=== PATIENT | male | born 1980 | race Caucasian/White ===

== ENCOUNTER 2017-11-02 15:07 | Emergency (ER) | payer BC, OTHER ==
[2017-11-02 15:11] VITALS: RESP 18
[2017-11-02] MEDS ORDERED: HYDROcodone/APAP 5-325MG 1 EACH TAB PO STA (15:25)
[2017-11-02] MEDS ORDERED: ONDANSETRON 4 MG TAB PO STA (15:25)
[2017-11-02] MEDS ORDERED: cefTRIAXone 1,000 MG VIAL (IM USE) IM STA (15:26)
[2017-11-02] MEDS ORDERED: DIPH,PERTUS(ACELL)TETVAC-LF 0.5 ML VIAL IM ONE (15:27)
[2017-11-02] MEDS ORDERED: MORPHINE SULFATE 4MG/4ML SYRG IVP STA ×2 (15:27→15:33)
[2017-11-02] MEDS ORDERED: cefTRIAXone IN SWFI 2,000 MG/20 ML SYRINGE IVP STA (15:33)
[2017-11-02] MEDS ORDERED: ONDANSETRON 4 MG/2 ML VIAL IVP STA (15:35)
--- NOTE | 2017-11-02 15:51 | ED ---
General Adult HPI - General Chief complaint: Wound/Laceration Stated complaint: cut off finger Time Seen by Provider: 11/02/17 15:16 Source: patient, RN notes reviewed Mode of arrival: ambulatory Limitations: no limitations - History of Present Illness Initial comments: 36-year-old male presents to the emergency department for a chief complaint of injury to the second digit of the left hand. Patient states he was using a table saw when a hammer fell from a shelf and he went to catch it. Unfortunately, when he went to catch it he hit his finger on the table saw. The distal part of the finger is completely severed. Patient could not find the distal part of the finger and spent about an hour looking. Patient states he did not pass out or lose consciousness when this happened. He has no other injuries. Patient does not have an up-to-date tetanus. Patient states he has never had surgery on that hand. Patient states he can move the remaining finger and has sensation. Patient denies any other complaints at this time such as shortness of breath, chest pain, abdominal pain, nausea or vomiting or headache. - Related Data Previous Rx's Medication Instructions Recorded Cephalexin [Keflex] 250 mg PO Q6HR #40 cap 11/02/17 HYDROcodone/APAP 5-325MG [Neffs 1 tab PO Q6HR PRN #12 tab 11/02/17 5-325] Allergies Allergy/AdvReac Type Severity Reaction Status Date / Time No Known Allergies Allergy Verified 11/02/17 15:11 Review of Systems ROS Statement: Those systems with pertinent positive or pertinent negative responses have been documented in the HPI. ROS Other: All systems not noted in ROS Statement are negative. Past Medical History Past Medical History: No Reported History History of Any Multi-Drug Resistant Organisms: None Reported Past Surgical History: No Surgical Hx Reported Additional Past Surgical History / Comment(s): eye Past Psychological History: No Psychological Hx Reported Smoking Status: Current every day smoker Past Alcohol Use History: Occasional Past Drug Use History: None Reported General Exam Limitations: no limitations Respiratory exam: Present: normal lung sounds bilaterally. Absent: respiratory distress, wheezes, rales, rhonchi, stridor Cardiovascular Exam: Present: regular rate Extremities exam: Present: full ROM (Patient has full range of motion of the remaining left hand second digit. Has full range of motion of all other digits on the left hand.), normal capillary refill (Capillary refill less than 2 seconds in all digits of the left hand.), other (Second digit of the left hand is severed distal to the PIP joint. There are no current signs of infection. There are no foreign bodies. Radial pulse 2+ bilaterally.) Course Vital Signs 11/02/17 15:09 Temperature 97.8 F Pulse Rate 96 Respiratory 18 Rate Blood Pressure 139/82 O2 Sat by Pulse 99 Oximetry Procedures - Procedures Initial comment: Body area: Second digit left hand Laceration length: Amputation at the middle phalanx Foreign bodies: no foreign bodies - bone shard was removed from the wound after x-ray. Tendon involvement: none Nerve involvement: none Vascular damage: no Anesthesia: Digital block Local anesthetic: 4 mL 1% lidocaine Preparation: Patient was prepped and draped in the usual sterile fashion. Irrigation solution: Soaked with iodine and sterile water. Saline was used as an irrigation method. Irrigation method: sterile water jet lavage Skin closure:5-0 Ethilon using sterile technique Number of sutures: 5 Technique: Simple interrupted applied loosely to allow for drainage. Dressing: antibiotic ointment/ gauze Patient tolerance: Patient tolerated the procedure well with no immediate complications. Medical Decision Making - Medical Decision Making 36-year-old male presents to the emergency department for chief complaint of amputation of the second digit of the left hand at the middle phalanx. Patient states he was using a table saw. His tetanus is up not up-to-date. He was given a tetanus shot in the emergency room. An x-ray was taken of the left hand which shows amputation of the proximal phalanx at the proximal metaphysis of the index finger left hand. Soft tissue injury is over this site. Fracture fragments from the bone adjacent within the soft tissue. No additional fractures are evident. The wound was debrided of nonviable tissue. A bone shard was removed from the wound. The wound was sutured loosely to continue to allow for drainage but to close the skin flap. Patient was given IV Rocephin, morphine, and Zofran in the emergency department. He was given IV fluids due to slight irritation over the right AC due to inflammation from rocephin. he will continue to take oral Keflex outpatient and follow-up with orthopedics in one to 2 days. he is to return to the emergency Department if he notices any increased signs of infection. These signs were discussed with the patient at length. He is to return if he has any worsening symptoms as well. Patient is to take Neffs for pain relief. He can take ibuprofen as long as he doesn't notice any increased bleeding from the wound. Disposition Clinical Impression: Amputation finger Disposition: HOME SELF-CARE Condition: Good Instructions: Finger Amputation (ED) Additional Instructions: Take Keflex as directed. You may take Neffs for pain relief. Please return to the emergency department if you notice any signs of infection. Please return if you notice any worsening symptoms. Follow up with hand surgeon in 1-2 days. Prescriptions: Cephalexin [Keflex] 250 mg PO Q6HR #40 cap HYDROcodone/APAP 5-325MG [Neffs 5-325] 1 tab PO Q6HR PRN #12 tab PRN Reason: Pain Referrals: Luca Denis DO [Primary Care Provider] - 1-2 days Ben Duran DO [Doctor of Osteopathic Medicine] - 1-2 days Time of Disposition: 16:54
--- NOTE | 2017-11-02 15:55 | XR ---
EXAMINATION TYPE: XR hand complete LT DATE OF EXAM: 11/02/2017 COMPARISON: NONE HISTORY: Amputation left index finger laceration with table saw TECHNIQUE: 3 views left hand FINDINGS: There is amputation of the proximal phalanx at the proximal metaphysis of the index finger left hand. Soft tissue injury is over this site. Fracture fragments from the bone adjacent within the soft tissues. No additional fractures are evident. IMPRESSION: 1. Amputation of the middle phalanx left index finger with overlying soft tissue injury.
[2017-11-02] MEDS ORDERED: SODIUM CHLORIDE 0.9% 500 ML IV STA (16:27)
[2017-11-02] MEDS ORDERED: LIDOCAINE 1% INJ 10MG/ML (20 ML MDV) SQ ONE (16:28)
[2017-11-02 17:19] VITALS: BP 127/71; PULSE 76; TEMP 98.4
--- NOTE | 2017-11-05 07:45 | CDI ---
Documentation Clarification OP Dear Dr. Kahlil Garcia PAYukoC Please do addendum to ED report that provides Need Length of laceration to report simple repair. Thank you, Anand Goodman [employer] Visual Equipment Rental Clerk If you have any questions, please contact Financial Underwriter at [phone] [facility]
== END 2017-11-02 17:15 | disposition home or self-care (01) ==
LOC: EC 15:07
DX: S68.611A Complete traumatic transphalangeal amputation of left index finger, initial encounter (principal); F17.200 Nicotine dependence, unspecified, uncomplicated; Z23 Encounter for immunization; W31.2XXA Contact with powered woodworking and forming machines, initial encounter; Y92.89 Other specified places as the place of occurrence of the external cause
CPT/HCPCS: 99283; 12001; 96374; 96375 ×2; 96361; 90471; 73130; 90715; J2405; J0696; J2001; J2270

== ENCOUNTER 2020-06-19 08:45 | Day surgery (SDC) | payer BC ==
[2020-06-15 12:37] VITALS: BMI 28.8
[~2020-06-19 08:45] MED LIST: LACTATED RINGERS 1,000 ML IV SCH
[2020-06-19 09:18] VITALS: RESP 16; TEMP 97.7
[2020-06-19] MEDS ORDERED: PROPOFOL 10 MG/ML 20 ML VIAL IV ONE (10:06)
[2020-06-19] MEDS ORDERED: LIDOCAINE 1% INJ 10MG/ML (20 ML MDV) ONE (10:06)
--- NOTE | 2020-06-19 10:25 | P.PCN ---
Date of Procedure: 06/19/20 Description of Procedure: BRIEF HISTORY: Patient is a 39-year-old presenting for outpatient esophagogastroduodenoscopy for evaluation of symptoms of GERD. She reports a long-standing history of reflux disease. Currently maintained on omeprazole therapy. The patient reports breakthrough symptoms if he misses his medication, as well as epigastric abdominal pain.. PROCEDURE PERFORMED: Esophagogastroduodenoscopy with biopsy. PREOPERATIVE DIAGNOSIS: GERD, reflux, epigastric abdominal pain. ESTIMATED BLOOD LOSS: Minimal. IV sedation per anesthesia. PROCEDURE: After informed consent was obtained, the patient was brought into the endoscopy unit. IV sedation was administered by Anesthesia under continuous monitoring. Initially the Olympus GIF-190 video endoscope was inserted into the mouth. Esophagus intubated without any difficulty. It was gradually advanced into the stomach and duodenum and carefully examined. The bulb and the second part of the duodenum appeared normal, with biopsies taken to rule out celiac sprue. The scope at this time was withdrawn to the stomach, adequately insufflated with air, and upon careful examination, mucosa of the antrum, body, cardia and the fundus appeared normal, except for some mild punctate erythema in the antrum and body suggestive of mild gastritis with biopsies taken. The scope was then withdrawn into the esophagus. The GE junction was located at 41 cm from the incisors which appeared grossly normal, there may be some abnormal salmon- colored mucosa suggestive of short segment Bautista's with biopsies of the GE junction taken. The esophagus appeared normal. There were no erosions or ulcerations seen and the patient tolerated the procedure well. IMPRESSION: 1. Mild gastritis. 2. Biopsies of the duodenum, antrum body and GE junction. RECOMMENDATIONS: The findings of this examination were discussed with the patient and his family. Okay to resume diet. Okay to resume medications. Await pathology from biopsies. Continue omeprazole therapy.
[2020-06-19 10:38] VITALS: BP 130/88; PULSE 69
== END 2020-06-19 11:24 | disposition home or self-care (01) ==
LOC: ORWHC2ENDO 08:45
PROVIDERS: ATTEND Internal Medicine
DX: K29.50 Unspecified chronic gastritis without bleeding (principal); K21.00 Gastro-esophageal reflux disease with esophagitis, without bleeding; H54.61 Unqualified visual loss, right eye, normal vision left eye; Z79.899 Other long term (current) drug therapy; Z72.0 Tobacco use; Z98.890 Other specified postprocedural states
CPT/HCPCS: 43239; J2001; J2704; 88305

== ENCOUNTER → 2020-06-19 | Outpatient (CLI) | payer BC ==
--- NOTE | 2020-06-19 10:47 | US ---
EXAMINATION TYPE: US liver DATE OF EXAM: 06/19/2020 COMPARISON: NONE CLINICAL HISTORY: R74.8 Elevated liver enzymes. EXAM MEASUREMENTS: Liver Length: 18.4 cm Gallbladder Wall: 0.2 cm CBD: 0.4 cm Right Kidney: 11.1 x 4.5 x 5.4 cm Pancreas: Obscured by bowel gas Liver: Increased attenuation, decreased visualization of vessels suggestive of fatty infiltrate Gallbladder: wnl Evidence for sonographic Whyte's sign: No CBD: wnl as visualized, distal portion obscured by bowel gas Right Kidney: No hydronephrosis or masses seen IMPRESSION: 1. Hepatomegaly
== END | disposition home or self-care (01) ==
LOC: RADUSWWP 07:26
PROVIDERS: ATTEND Family Medicine
DX: R16.0 Hepatomegaly, not elsewhere classified (principal); R74.8 Abnormal levels of other serum enzymes
CPT/HCPCS: 76705